=== PATIENT | female | born 1935 | race African-American/Black ===

== ENCOUNTER 2018-04-19 23:34 | Inpatient (IN) | payer MEDICARE, BC ==
[~2018-04-19] VITALS: Ht 165.1 cm; Wt 51.7 kg
--- NOTE | 2018-04-20 00:05 | NUR ---
Pt has 4 collectible coins (belongings) that are placed in safe. Nurse nutritional yeast supervisor aware.
--- NOTE | 2018-04-20 00:12 | NUR ---
Pt. admitted to M[facility] (bed [facility] , under care of Dr. Gonzalez/Inbox Diagnosis: Psychosis Belongs List completed. Report given to Marta. No acute distress noted. VSS.
--- NOTE | 2018-04-20 00:45 | NUR ---
RECEIVED PATIENT VIA GURNEY FROM ER. PATIENT IS ALERT TO SELF ONLY. CONFUSED AND DISORIENTED, BUT PLEASANT WHEN APPROACHED. SITTER AT BEDSIDE FOR SAFETY. PATIENT DENIES PAIN OR DISCOMFORT. NO FACIAL GRIMACE NOTED. DENIES ANY SOB. ON RA SATING 99%. BP SLIGHTLY ELEVATED, BUT TRENDING DOWN FROM ER. PATIENT DENIES ANY CHEST PAIN. SKIN INTACT. OLD SCAR NOTED TO RIGHT CHEST, INTACT. PROVIDED SAFE AND THERAPEUTIC ENVIRONMENT. BED ALARM ON. ALL NEEDS ATTENDED. WILL CONTINUE TO MONITOR AND ASSESS.
[2018-04-20] MEDS ORDERED: MAG HYDROX/AL HYDROX/SIMETH 30 ML LIQUID UDC PO PRN ×2 (01:15→01:16)
[2018-04-20] MEDS ORDERED: MAGNESIUM HYDROXIDE 30 ML LIQUID UDC PO PRN (01:15)
[2018-04-20] MEDS ORDERED: LORAZEPAM 0.5 MG TABLET PO PRN (01:15)
--- NOTE | 2018-04-20 06:53 | NUR ---
PATIENT AWAKE IN BED. SITTER AT BEDSIDE. PATIENT SLEPT A TOTAL OF 2 HOURS. BED ALARM ON. ALL NEEDS ATTENDED. WILL CONTINUE TO MONITOR.
--- NOTE | 2018-04-20 07:57 | NUR ---
patient resting comfortably in bed at this time. no s/s of distress. stable condition. 1:1 sitter at bedside. patient on 5150 hold, geropsych overflow. pleasant. alert at this time. will continue to monitor.
[2018-04-20 08:18] VITALS: BP 141/68
--- NOTE | 2018-04-20 09:00 | NUR ---
patient evaluated by physical therapy. patient able to ambulate without assistance.
--- NOTE | 2018-04-20 09:15 | NUR ---
UX VISUAL DESIGNER ordered to have CBC, BMP, and UA ordered for patient today. Orders placed.
[2018-04-20 10:20] LABS: BASOPHILS % (AUTO) 0.4 % (0.0-2.0); EOSINOPHILS # (AUTO) 0.1 K/uL (0.0-0.7); EOSINOPHILS % (AUTO) 0.9 % (0.0-7.0); HEMOGLOBIN 15.4 g/dL (10.9-14.3); LYMPHOCYTES # (AUTO) 1.3 K/uL (20.0-40.0); LYMPHOCYTES % (AUTO) 14.3 % (20.5-51.5); MEAN CORPUSCULAR HEMOGLOBIN 29.8 uug (24.7-32.8); MEAN CORPUSCULAR HGB CONC 34 g/dL (32.3-35.6); MEAN CORPUSCULAR VOLUME 86.8 fL (75.5-95.3); MONOCYTES # (AUTO) 0.8 K/uL (2.0-10.0); MONOCYTES % (AUTO) 8.7 % (0.0-11.0); NEUTROPHILS # (AUTO) 6.8 K/uL (1.8-8.9); NEUTROPHILS % (AUTO) 75.7 % (38.5-71.5); PLATELET COUNT (AUTO) 110 K/uL (179-408); RED BLOOD CELL COUNT(AUTO) 5.19 MIL/uL (3.63-4.92)
[2018-04-20 10:28] LABS: CARBON DIOXIDE 26 mmol/L (21-32); CHLORIDE 104 mmol/L (98-107); GLUCOSE 147 mg/dL (74-106); POTASSIUM 3.3 mmol/L (3.5-5.1); UREA NITROGEN, BLOOD 13 mg/dL (7-18)
[2018-04-20 11:32] VITALS: BP 138/62
[2018-04-20] MEDS ORDERED: ZOLP10TA2 PO (12:55)
[2018-04-20] MEDS ORDERED: SERT100T PO (12:55)
[2018-04-20] MEDS ORDERED: ALPR1TAB7 PO (12:55)
[2018-04-20] MEDS ORDERED: CAND32TA2 PO (16:38)
[2018-04-20 20:00] VITALS: BP 126/67
--- NOTE | 2018-04-20 20:00 | NUR ---
RECEIVED PATIENT AWAKE IN BED WITH SITTER AT BEDSIDE. PATIENT IS ALERT TO SELF ONLY, CONFUSED AND DISORIENTED BUT PLEASANT WHEN APPROACHED. VSS. PATIENT DENIES PAIN OR DISCOMFORT. NO RESP. DISTRESS NOTED. PROVIDED SAFE AND THERAPEUTIC ENVIRONMENT. BED ALARM ON. ALL NEEDS ATTENDED. WILL CONTINUE TO MONITOR AND ASSESS.
[2018-04-20] MEDS: MIRTAZAPINE 15 MG TABLET PO SCH (20:39)
[2018-04-21] MEDS: TEMAZEPAM 7.5 MG CAPSULE PO PRN (00:13)
[2018-04-21] MEDS: ACETAMINOPHEN 325 MG TABLET PO PRN (00:13)
--- NOTE | 2018-04-21 00:15 | NUR ---
PATIENT IS AWAKE IN BED. VERY RESTLESS. PATIENT GIVEN RESTORIL 7.5MG PO PRN AND TYLENOL 650MG PO PRN FOR MILD PAIN, PATIENT STATED, "MY BONES ARE SORE." SITTER AT BEDSIDE, WILL CONTINUE TO MONITOR AND ASSESS.
--- NOTE | 2018-04-21 02:00 | NUR ---
PATIENT STILL AWAKE. VERY RESTLESS. SITTER AT BEDSIDE. WILL CONTINUE TO MONITOR AND ASSESS.
[2018-04-21 06:09] LABS: BASOPHILS % (AUTO) 0.3 % (0.0-2.0); EOSINOPHILS # (AUTO) 0.2 K/uL (0.0-0.7); EOSINOPHILS % (AUTO) 2.2 % (0.0-7.0); HEMATOCRIT 45.5 % (31.2-41.9); HEMOGLOBIN 15.4 g/dL (10.9-14.3); LYMPHOCYTES # (AUTO) 2.1 K/uL (20.0-40.0); LYMPHOCYTES % (AUTO) 27.4 % (20.5-51.5); MEAN CORPUSCULAR HEMOGLOBIN 30.1 uug (24.7-32.8); MEAN CORPUSCULAR HGB CONC 34 g/dL (32.3-35.6); MEAN CORPUSCULAR VOLUME 88.8 fL (75.5-95.3); MONOCYTES # (AUTO) 0.8 K/uL (2.0-10.0); MONOCYTES % (AUTO) 10.6 % (0.0-11.0); NEUTROPHILS # (AUTO) 4.6 K/uL (1.8-8.9); NEUTROPHILS % (AUTO) 59.5 % (38.5-71.5); PLATELET COUNT (AUTO) 110 K/uL (179-408); RED BLOOD CELL COUNT(AUTO) 5.12 MIL/uL (3.63-4.92); WHITE BLOOD COUNT (AUTO) 7.7 K/uL (3.8-11.8)
--- NOTE | 2018-04-21 06:13 | NUR ---
PATIENT ASLEEP. PATIENT SLEPT A TOTAL OF 1 HOUR AND 45 MINUTES. SITTER AT BEDSIDE.
[2018-04-21 06:20] LABS: CARBON DIOXIDE 30 mmol/L (21-32); CHLORIDE 106 mmol/L (98-107); GLUCOSE 91 mg/dL (74-106); POTASSIUM 3.2 mmol/L (3.5-5.1); UREA NITROGEN, BLOOD 11 mg/dL (7-18)
--- NOTE | 2018-04-21 07:45 | NUR ---
patient resting comfortably in bed at this time. awake. only slept 1 hour and 45 minutes during the night per electric meter setter nurse. reorientation will be provided throughout shift. stable condition. notified MANAGER ASSISTED LIVING of potassium level of 3.2. MANAGER ASSISTED LIVING ordered 40 meq potassium to be administered. 1:1 sitter at bedside. continues to be on 5150 hold. will monitor throughout shift.
[2018-04-21] MEDS ORDERED: POTASSIUM CHLORIDE 20 MEQ TAB.PRT.SR PO ONE (09:00)
[2018-04-21 09:14] VITALS: BP 145/73
--- NOTE | 2018-04-21 09:46 | NUR ---
pt refused to take second tablet of k-dur 20 mEq. patient took first tablet but refused to take the second tablet. reorientation provided and explained importance of supplementing potassium. patient continued to refuse. will attempt to administer second tablet later on in shift.
[2018-04-21 09:54] LABS: *BILIRUBIN,URIN NEGATIVE (NEGATIVE); *BLOOD, URINE Trace-lysed (NEGATIVE); *CLARITY,URINE SLIGHTLY CLOUDY (CLEAR); *COLOR,URINE YELLOW (YELLOW); *KETONES,URINE NEGATIVE (NEGATIVE); *PROTEIN,URINE NEGATIVE (NEGATIVE); *UROBILINOGEN,URINE 0.2 E.U./dl (NORMAL); LEUKOCYTE ESTERASE ,URINE 2+ (NEGATIVE); NITRITE, URINE NEGATIVE (NEGATIVE); UGLUCOSE NEGATIVE (NEGATIVE)
[2018-04-21 10:22] LABS: BACTERIA,URINE FEW /HPF (NONE SEEN); SQUAMOUS EPITHELIAL CELL,UR MODERATE /HPF (NONE SEEN)
[2018-04-21 13:00] VITALS: BP 114/58
[2018-04-21] MEDS: OLANZAPINE 2.5 MG TABLET PO SCH ×2 (13:47→17:36)
[2018-04-21] MEDS: ALPRAZOLAM 0.25 MG TABLET PO PRN ×2 (13:47→22:05)
[2018-04-21] MEDS: SERTRALINE HCL 50 MG TABLET PO SCH (13:47)
[2018-04-21] MEDS: LOSARTAN POTASSIUM 50 MG TABLET PO SCH (13:47)
[2018-04-21] MEDS: ALPRAZOLAM 0.5 MG TABLET PO SCH ×2 (13:50→17:36)
--- NOTE | 2018-04-21 16:03 | NUR ---
Initial DC Plan: Patient currently lives home alone [[address] [address]; [phone]]. SW will follow up with MD, patient, and patient's friend Zarina [[phone]] to discuss most appropriate discharge plans. SW will form a safe and proper discharge.
[2018-04-21 18:53] VITALS: BP 152/77
--- NOTE | 2018-04-21 19:25 | NUR ---
RECEIVED PT AWAKE, ALERT,AND ORIENTEDX2. PT SHOWS NO SIGNS OF DISTRESS. SITTER AT BEDSIDE. CALL LIGHT WITHIN REACH, BED ALARM ON AND IN LOW POSITION, AND SIDE RAILS UPX2. WILL CONTINUE TO MONITOR.
[2018-04-21 19:58] VITALS: BP 119/50
[2018-04-21] MEDS: MIRTAZAPINE 15 MG TABLET PO SCH (21:34)
[2018-04-22] MEDS: TEMAZEPAM 7.5 MG CAPSULE PO PRN (01:12)
[2018-04-22] MEDS: ACETAMINOPHEN 325 MG TABLET PO PRN (01:12)
--- NOTE | 2018-04-22 06:21 | NUR ---
PT SLEPT INTERMITTENTLY. SITTER AT BEDSIDE.PT SLEPT 4 HOURS. PT SHOWS NO SIGNS OF DISTRESS. PT CONFUSED BUT PLEASANT WHEN APPROACHED.. PT WANT TO GO HOME. NEED REORIENTATION. PRESCRIBED MEDICATION GIVEN AND PT TOLERATED IT WELL CALL LIGHT WITHIN REACH. BED ALARM ON AND IN LOW POSITION. WILL ENDORSE ACCORDINGLY TO INCOMING SHIFT NURSE.
--- NOTE | 2018-04-22 07:39 | NUR ---
PATIENT RESTING COMFORTABLY IN BED. STABLE CONDITION, NO S/S OF DISTRESS. 1:1 SITTER AT BEDSIDE. REORIENTATION WILL BE PROVIDED THROUGHOUT SHIFT. ABLE TO AMBULATE TO RESTROOM. NO SIGNS OF AGITATION, AGGRESSION. DENIES SI, HI. COOPERATIVE.
[2018-04-22 07:57] VITALS: BP 145/67
[2018-04-22] MEDS: ALPRAZOLAM 0.5 MG TABLET PO SCH ×2 (08:28→17:23)
[2018-04-22] MEDS: OLANZAPINE 2.5 MG TABLET PO SCH ×2 (08:28→17:23)
[2018-04-22] MEDS: LOSARTAN POTASSIUM 50 MG TABLET PO SCH (08:29)
--- NOTE | 2018-04-22 08:41 | NUR ---
PATIENT SLEPT ABOUT 4 HOURS DURING PREVIOUS NIGHT ACCORDING TO SADDLE MAKER NURSE. PATIENT SLEEPING AT THIS TIME. VERBALIZES THAT SHE WILL HAVE BREAKFAST LATER.
[2018-04-22] MEDS ORDERED: CANDESARTAN CILEXETIL 32 MG PO SCH (09:00)
[2018-04-22] MEDS ORDERED: POTASSIUM CHLORIDE 20 MEQ TAB.PRT.SR PO ONE (09:15)
[2018-04-22 11:48] VITALS: BP 133/72
[2018-04-22] MEDS: SERTRALINE HCL 50 MG TABLET PO SCH (12:00)
[2018-04-22 15:22] VITALS: BP 112/73
--- NOTE | 2018-04-22 18:15 | NUR ---
PATIENT IN AND OUT OF SLEEP DURING THE DAY SHIFT. COMPLIANT WITH MEDICATIONS AND MEDICAL CARE. PATIENT REQUESTING TO SEE DOCTOR BUT PSYCHIATRIST HAS ALREADY SEEN PATIENT BUT PATIENT ASLEEP DURING THE MORNING. NO SIGNS OF AGITATION. REORIENTATION PROVIDED TO PATIENT THROUGHOUT SHIFT. NO SIGNS OF ASPIRATION. SAFETY MEASURES IMPLEMENTED.
[2018-04-22 20:00] VITALS: BP 125/55
[2018-04-22] MEDS: MIRTAZAPINE 15 MG TABLET PO SCH (20:21)
[2018-04-23] MEDS: TEMAZEPAM 7.5 MG CAPSULE PO PRN (00:17)
[2018-04-23 06:28] LABS: CARBON DIOXIDE 27 mmol/L (21-32); CHLORIDE 106 mmol/L (98-107); CREATININE 0.9 mg/dL (0.6-1.3); GLUCOSE 112 mg/dL (74-106); POTASSIUM 3.6 mmol/L (3.5-5.1); UREA NITROGEN, BLOOD 10 mg/dL (7-18)
[2018-04-23 06:29] LABS: BASOPHILS % (AUTO) 0.3 % (0.0-2.0); EOSINOPHILS # (AUTO) 0.2 K/uL (0.0-0.7); HEMOGLOBIN 14.9 g/dL (10.9-14.3); LYMPHOCYTES # (AUTO) 1.6 K/uL (20.0-40.0); LYMPHOCYTES % (AUTO) 16.6 % (20.5-51.5); MEAN CORPUSCULAR HEMOGLOBIN 30.3 uug (24.7-32.8); MEAN CORPUSCULAR HGB CONC 35 g/dL (32.3-35.6); MEAN CORPUSCULAR VOLUME 87.4 fL (75.5-95.3); MONOCYTES # (AUTO) 0.8 K/uL (2.0-10.0); MONOCYTES % (AUTO) 7.9 % (0.0-11.0); NEUTROPHILS # (AUTO) 7.2 K/uL (1.8-8.9); NEUTROPHILS % (AUTO) 73.2 % (38.5-71.5); PLATELET COUNT (AUTO) 135 K/uL (179-408); RED BLOOD CELL COUNT(AUTO) 4.92 MIL/uL (3.63-4.92); WHITE BLOOD COUNT (AUTO) 9.9 K/uL (3.8-11.8)
--- NOTE | 2018-04-23 06:37 | NUR ---
PT SLEPT INTERMITTENTLY. PT SHOWS NO SIGNS OF DISTRESS. SITTER AT BEDSIDE FOR SAFETY. PT RESTLESS, TURNING SIDE TO SIDE ON HER BED. PT DRANK A LOT OF JUICE.PT SLEPT 3 HOURS . PRESCRIBED MEDICATION GIVEN AND PT TOLERATED IT WELL. SAFETY AND COMFORT PROVIDED. WILL ENDORSE ACCORDINGLY TO INCOMING NURSE FOR CONTINUITY OF CARE.
--- NOTE | 2018-04-23 07:05 | NUR ---
Received report from maintenance supervisor 2nd shift nurse, patient in bed, no distress noted at this time, bed in low position, side rails up x2, bed alarm set and sitter at bedside.
[2018-04-23 07:14] VITALS: BP 118/52
[2018-04-23] MEDS: ALPRAZOLAM 0.5 MG TABLET PO SCH ×3 (08:27→16:11)
[2018-04-23] MEDS: OLANZAPINE 2.5 MG TABLET PO SCH ×3 (08:27→16:11)
[2018-04-23] MEDS: LOSARTAN POTASSIUM 50 MG TABLET PO SCH (08:27)
[2018-04-23] MEDS: SERTRALINE HCL 50 MG TABLET PO SCH (12:41)
[2018-04-23 12:55] VITALS: BP 132/64
--- NOTE | 2018-04-23 13:50 | NUR ---
Patient spontaneously started acting out and demanding that her deputy attorney general is put on the phone. It was explained to the patient that she was placed on a hold due to her behavior. She started ripping the lines out of the wall and pulling at everything in her room. Dr. Kemp called to get a one time order for medication for behavior.
[2018-04-23] MEDS ORDERED: OLANZAPINE 10 MG VIAL IM ONE (14:00)
--- NOTE | 2018-04-23 16:12 | NUR ---
Patient was offered medications, and took the cup as if she was going to take it, and threw it across the room. Medications were collected off the floor and wasted in the pyxis.
--- NOTE | 2018-04-23 17:46 | NUR ---
Patient has not been cooperative with care, after the incident in late afternoon. Patient refusing medications, and continues to have occasional outbursts. Currently patient is in bed, sitter at bedside, bed in low position, side rails up x2.
--- NOTE | 2018-04-23 19:20 | NUR ---
RECEIVED PT AWAKE, ALERT, AND ORIENTEDX2. PT SHOWS NO SIGNS OF DISTRESS. PT CALM WHEN APPROACHED. SITTER AT BEDSIDE. SAFETY PROVIDED. WILL CONTINUE TO MONITOR.
[2018-04-23 19:47] VITALS: BP 117/74
[2018-04-23] MEDS: MIRTAZAPINE 15 MG TABLET PO SCH (20:12)
[2018-04-23] MEDS: ALPRAZOLAM 0.25 MG TABLET PO PRN (20:12)
[2018-04-23] MEDS: ACETAMINOPHEN 325 MG TABLET PO PRN (20:12)
[2018-04-24] MEDS: ALPRAZOLAM 0.25 MG TABLET PO PRN (05:44)
--- NOTE | 2018-04-24 06:05 | NUR ---
PT WOKE UP AND AGITATED, DISORIENTED AND CONFUSED. PT WANTS HER OWN EYEGLASS. PT WANTS US TO GET A NEW ONE FOR HER FROM [facility]. CHARGE NURSE AWARE AND TALKED WITH THE PT. PT GIVEN XANAX PRESCRIBED. ONE TABLET WAS THROWN TO THE FLOOR BY THE PT. CHARGE NURSE AND I GET ANOTHER TABLET AT THE [facility].PT ALSO THROW AN OBJECT THAT SHE HOLD PER SITTER. WILL CONTINUE TO MONITOR.
--- NOTE | 2018-04-24 06:42 | NUR ---
PT SLEPT 8 HOURS OF THE SHIFT. PT SHOWS NO SIGNS OF DISTRESS.PRESCRIBED MEDICATION GIVEN AND PT TOLERATED IT WELL.PT PLEASANT WHEN APPROACH. COOPERATIVE WITH CARE BUT SOMETIMES RELUCTANT. PT SOMETIMES CONFUSE AND CONFABULATES.SITTER AT BEDSIDE FOR SAFETY. BED ALARM ON. SAFETY AND COMFORT PROVIDED. WILL ENDORSE ACCORDINGLY FOR CONTINUITY OF CARE.
[2018-04-24 07:28] VITALS: BP 140/63
--- NOTE | 2018-04-24 07:47 | NUR ---
PATIENT IN BED AT THIS TIME. AWAKE. REQUESTING FOR FLOSS AND REQUESTING FOR HER JELLY FILTER TENDER. NOTIFIED PATIENT WE DONT HAVE FLOSS AND PATIENT APPEARS AGITATED. ALSO REQUESTING TO LEAVE. NOTIFIED PATIENT SHE CANNOT BECAUSE SHE IS ON A HOLD AND SHOWED PATIENT DOCUMENTS SHOWING THE PSYCHIATRIC HOLD. 1:1 SITTER AT BEDSIDE FOR SAFETY. REORIENTATION WILL BE PROVIDED.
[2018-04-24] MEDS: LOSARTAN POTASSIUM 50 MG TABLET PO SCH (08:16)
[2018-04-24] MEDS: OLANZAPINE 2.5 MG TABLET PO SCH ×2 (08:17→16:34)
[2018-04-24] MEDS: ALPRAZOLAM 0.5 MG TABLET PO SCH ×2 (08:17→16:33)
--- NOTE | 2018-04-24 11:09 | NUR ---
PATIENT TRANSFERRED TO MENTAL HEALTH UNIT AT THIS TIME. REPORT GIVEN.
[2018-04-24] MEDS: SERTRALINE HCL 50 MG TABLET PO SCH (12:49)
[2018-04-24 17:11] VITALS: BP 112/65
--- NOTE | 2018-04-24 18:28 | NUR ---
GPS: Nursing Notes: Thought Disorder: Patient is awake and responding to her name, resistant with nursing care, poor anger management, loud and angry affect, c/o heartburn, but when offered Mylanta, she got angry and threw the medication on the floor, violent outburst without provocation, verbal abusive, unkempt appearance, manipulative by saying one thing to staff and another thing to another staff, scratched staff on the arms when assisting her to the bathroom, paranoid, suspicious behavior, poor impulse control, gets easily irritable when redirected, unable to formulate a viable plan for self care, continue with treatment plan.
[2018-04-24 19:30] VITALS: BP 118/54
[2018-04-24] MEDS: MIRTAZAPINE 15 MG TABLET PO SCH (20:17)
[2018-04-24] MEDS: TEMAZEPAM 7.5 MG CAPSULE PO PRN (20:17)
--- NOTE | 2018-04-25 00:18 | NUR ---
Restoril given per pt's request at 2100. Sleeping soundly at this time
--- NOTE | 2018-04-25 06:46 | NUR ---
Episodes of being cooperative, manipulative and acting out noted. Screamed when room lights were turned on, when assisted to a different position and during nursing care. Urinated by her bedroom door. Went to the next patients' bathroom and used the toilet. Got slightly combative when being helped to a angel chair. Took a shower this morning. Manifested paranoia when given meds, demanded to see pills in original wrapper. Took her meds for the shift. Slept well during the night.
[2018-04-25 07:30] VITALS: BP 114/59
[2018-04-25] MEDS: OLANZAPINE 2.5 MG TABLET PO SCH ×2 (09:15→17:16)
[2018-04-25] MEDS: ALPRAZOLAM 0.5 MG TABLET PO SCH ×2 (09:15→17:16)
[2018-04-25] MEDS: LOSARTAN POTASSIUM 50 MG TABLET PO SCH (09:15)
[2018-04-25 15:24] VITALS: BP 107/60
[2018-04-25] MEDS ORDERED: LEVOFLOXACIN 500 MG TABLET PO SCH (19:00)
[2018-04-25 19:30] VITALS: BP 106/51
--- NOTE | 2018-04-25 19:45 | NUR ---
RECEIVED PATIENT IN THE DAY ROOM SITTING IN A SANDY CHAIR. SHE IS NOTED A/O X 2. SHE IS ABLE TO MAKE HER NEEDS KNOWN AND ABLE TO AMBULATE WITH SLOW BUT STEADY GAIT. CONTINENT OF BOWEL AND BLADDER. PATIENT NOTED SUSPICIOUS, LABILE, FLIGHT OF IDEAS, TANGENTIAL. POOR INSIGHT AND JUDGMENT NOTED INTO THE REASON FOR HIS ADMISSION TO MHU. SAFETY WAS EMPHASIS. WILL CONTINUE TO MONITOR CLOSELY.
[2018-04-25] MEDS: DIVALPROEX SPRINKLE 125 MG CAP.SPRINK PO SCH (20:44)
[2018-04-25] MEDS: MIRTAZAPINE 15 MG TABLET PO SCH (20:45)
[2018-04-25] MEDS: TEMAZEPAM 7.5 MG CAPSULE PO PRN (22:09)
[2018-04-26] MEDS: ALPRAZOLAM 0.25 MG TABLET PO PRN ×2 (01:19→21:52)
--- NOTE | 2018-04-26 06:54 | NUR ---
PATIENT SLEPT FOR APPROX 2.00HRSTHROUGH THE NIGHT. SHE CONTINUE SUSPICIOUS AND SHE WANTS HER MEDICATIONS TO BE OPEN IN FRONT OF HER. WILL CONTINUE TO MONITOR,
[2018-04-26 07:30] VITALS: BP 105/53
[2018-04-26] MEDS: ALPRAZOLAM 0.5 MG TABLET PO SCH ×2 (08:58→17:02)
[2018-04-26] MEDS: DIVALPROEX SPRINKLE 125 MG CAP.SPRINK PO SCH ×4 (08:58→17:02)
[2018-04-26] MEDS: LOSARTAN POTASSIUM 50 MG TABLET PO SCH (08:58)
[2018-04-26] MEDS: OLANZAPINE 2.5 MG TABLET PO SCH ×4 (08:59→17:01)
[2018-04-26] MEDS: NITROFURANTOIN/NITROFURAN MAC 100 MG CAPSULE PO SCH ×2 (11:46→20:36)
--- NOTE | 2018-04-26 12:00 | NUR ---
At this time patient took her medications after aggressively graving it from my hands; causing some scratches with scant bleeding in some areas. Attending psychiatrist in the unit and notified of incident.
--- NOTE | 2018-04-26 12:36 | NUR ---
1300 medications dose been refused by patient, who aggressively received medication and proceeded to throw it away. Patient educated on medication need, Patient stating "you just want to poison me and you think you can hold me here" using profanity language grabbed ensure bottle and throw it against wall almost hitting the tv.
[2018-04-26 15:00] VITALS: BP 102/52
--- NOTE | 2018-04-26 15:45 | NUR ---
Senior Internal Auditor: SW submitted APS report for suspected self-neglect (Intake #[id number])
--- NOTE | 2018-04-26 19:25 | NUR ---
RECEIVED PT AWAKE, ALERT,AND ORIENTED X1 . PT CALM WHEN APPROACHED BUT WHEN INTERACTION PT BECOME ANXIOUS AND HAD FLIGHT OF IDEAS. SAFETY PROVIDED. WILL CONTINUE TO MONITOR.
[2018-04-26 20:24] VITALS: BP 104/68
[2018-04-26] MEDS: TEMAZEPAM 7.5 MG CAPSULE PO PRN (21:52)
--- NOTE | 2018-04-27 06:27 | NUR ---
PT SLEPT INTERMITTENTLY AT 5 HOURS AND 30 MINUTES . PT STABLE WITH NO ACUTE DISTRESS. SAFETY AND COMFORT PROVIDED. PRESCRIBED MEDICATION GIVEN AND PT TOLERATED IT WELL BUT PT REFUSED HER MICROBID .ALL NEEDS ARE MET. WILL ENDORSE ACCORDINGLY TO INCOMING NURSE.
[2018-04-27 07:35] VITALS: BP 135/58
[2018-04-27] MEDS: LOSARTAN POTASSIUM 50 MG TABLET PO SCH (08:39)
[2018-04-27] MEDS: ALPRAZOLAM 0.5 MG TABLET PO SCH (08:39)
[2018-04-27] MEDS: OLANZAPINE 2.5 MG TABLET PO SCH ×3 (08:40→17:24)
[2018-04-27] MEDS: NITROFURANTOIN/NITROFURAN MAC 100 MG CAPSULE PO SCH ×2 (08:52→20:51)
[2018-04-27] MEDS: DIVALPROEX SPRINKLE 125 MG CAP.SPRINK PO SCH ×3 (08:53→17:00)
[2018-04-27 15:47] VITALS: BP 117/49
[2018-04-27] MEDS ORDERED: ALPRAZOLAM 0.5 MG TABLET PO SCH (17:00)
[2018-04-27] MEDS: ALPRAZOLAM 0.25 MG TABLET PO SCH (17:24)
[2018-04-27 20:18] VITALS: BP 158/50
[2018-04-27] MEDS: ALPRAZOLAM 0.25 MG TABLET PO PRN (22:11)
[2018-04-28] MEDS: TEMAZEPAM 7.5 MG CAPSULE PO PRN ×2 (00:32→23:33)
--- NOTE | 2018-04-28 06:48 | NUR ---
GPS: Pt.refused scheduled lab works for today despite explanation of importance. Pt.is easily agitated/irritable when being re-directed and persuaded. Continues to be paranoid and unpredictable. Will continue to monitor.
[2018-04-28 07:30] VITALS: BP 178/67
[2018-04-28] MEDS: NITROFURANTOIN/NITROFURAN MAC 100 MG CAPSULE PO SCH ×2 (09:00→20:45)
[2018-04-28] MEDS: DIVALPROEX SPRINKLE 125 MG CAP.SPRINK PO SCH ×3 (09:15→16:29)
[2018-04-28] MEDS: ALPRAZOLAM 0.25 MG TABLET PO SCH ×2 (09:15→16:29)
[2018-04-28] MEDS: OLANZAPINE 2.5 MG TABLET PO SCH ×3 (09:15→16:29)
[2018-04-28] MEDS: LOSARTAN POTASSIUM 50 MG TABLET PO SCH (09:16)
[2018-04-28 17:38] VITALS: BP 160/60
[2018-04-29] MEDS: ACETAMINOPHEN 325 MG TABLET PO PRN (00:56)
[2018-04-29] MEDS: ALPRAZOLAM 0.25 MG TABLET PO PRN ×2 (02:57→21:12)
[2018-04-29 07:30] VITALS: BP 147/82
[2018-04-29] MEDS: NITROFURANTOIN/NITROFURAN MAC 100 MG CAPSULE PO SCH ×3 (08:48→21:11)
[2018-04-29] MEDS: DIVALPROEX SPRINKLE 125 MG CAP.SPRINK PO SCH ×3 (08:49→17:00)
[2018-04-29] MEDS: OLANZAPINE 2.5 MG TABLET PO SCH ×3 (08:49→17:00)
[2018-04-29] MEDS: LOSARTAN POTASSIUM 50 MG TABLET PO SCH ×2 (08:50→09:00)
--- NOTE | 2018-04-29 09:18 | NUR ---
PATIENT IS HOSTILE ON APPROACH, SLAMMING THE BATHROOM DOORS. STACKS OF GLOVES WERE FOUND IN THE PATIENT BED, UNDER THE SHEETS, UNDER THE MATTRESS, UNDER THE PILLOW. PT WAS FOUND TO WEAR GLOVES ON HER FEET UNDER THE SOCKS AND HAVE GLOVES IN THE SOCKS. PT IS BEING MUTE AT THIS TIME AND DOES NOT TALK TO ANY OF THE STAFF ON THE UNIT. PT THREW HER PILLS ON THE FLOOR.
[2018-04-29 15:53] VITALS: BP 109/50
--- NOTE | 2018-04-29 17:34 | NUR ---
Pt sitting up in chair in day room. Noted participating in recreational activities, painting. However, continues to show aggressive behavior. Irritable on approach. Continued to refuse her medications throughout shift. Pt refuses to answer when spoken to. All safety precautions in place. Will continue to monitor.
[2018-04-29 20:29] VITALS: BP 122/69
[2018-04-29] MEDS: TEMAZEPAM 7.5 MG CAPSULE PO PRN (23:10)
--- NOTE | 2018-04-29 23:51 | NUR ---
RECEIVED PATIENT IN THE DINNING ROOM AND UPON INTERACTIONS WITH HER WITH HER SHE WAS TANGENTIAL IN HER CONVERSATION. FOR EXAMPLE WHEN ASKED WHAT BROUGHT HER HERE SHE GAVE A WHOLE FAMILY HISTORY OF WHO SHE WAS TO ,HER LEVEL OF EDUCATION AND ASKED STAFF TO VERIFY ALL THESE ON THE INTERNET.SHE IS NON COMPLIANT WITH HER MEDS SHE PICKS AND CHOSES WHICH ONES SHE WILL TAKE. SHE HOWEVER DID NOT DISPLAY ANY AGGRESSIVE BEHAVIOR ON THIS SHIFT.SHE DID NOT C/O PAIN.SAFETY PRECAUTIONS IN PLACE AND FREQUENT CHECKS MADE TO HER ROOM. WILL CONTINUE TO MONITOR.
--- NOTE | 2018-04-30 06:50 | NUR ---
SHE SLEPT FOR APPROX.6HRS THROUGHOUT THE NIGHT.AT APPROX 23HR SHE REQUESTED FOR A SLEEPING AID AND THAT WAS GIVEN WITH FAIRLY GOOD EFFECT.SAFETY EMPHASIZED.MONITORING CONTINUES
[2018-04-30 07:30] VITALS: BP 123/76
--- NOTE | 2018-04-30 10:00 | NUR ---
Refuse am depakote. Patient urinated on the chair on purpose. Took to the bathroom for Bowel movement x1. Very uncooperative and manipulative on all ADL. making self heavy when transferring from toilet to wheelchair. Cursing on all staff. Wanted to touch rectal area. Gave shower after BM.
[2018-04-30] MEDS: NITROFURANTOIN/NITROFURAN MAC 100 MG CAPSULE PO SCH ×2 (10:15→21:00)
[2018-04-30] MEDS: OLANZAPINE 2.5 MG TABLET PO SCH ×2 (10:16→17:10)
[2018-04-30] MEDS: LOSARTAN POTASSIUM 50 MG TABLET PO SCH (10:18)
[2018-04-30] MEDS: DIVALPROEX SPRINKLE 125 MG CAP.SPRINK PO SCH ×4 (10:19→17:10)
--- NOTE | 2018-04-30 12:50 | NUR ---
DERIC arana refused in am.m reoffered at 1235 and took by patient
--- NOTE | 2018-04-30 14:45 | NUR ---
Patient became combative. refused vitals. Took the vital cords and would not let go. She threw all the things in the vital machine. Patient stated she wants us to break her fingers so she has proof that we hurting her. Patient also squeezed all staffs' fingers and also threw bottles on staff. She made herself heavy and lied down on the bathroom floor when she went in the bathroom for BM.
--- NOTE | 2018-04-30 19:01 | NUR ---
At around 1630-Patient was able to sneaked medication in her vagina. I watched her swallow the pill while eating lunch. She took out the chewed medication from her vagina and smeared it on the nursing station's counter. Refused night Depakote.
[2018-04-30 20:21] VITALS: BP 140/62
[2018-04-30] MEDS: TEMAZEPAM 7.5 MG CAPSULE PO PRN (22:33)
[2018-05-01 07:30] VITALS: BP 171/77
[2018-05-01] MEDS: OLANZAPINE 2.5 MG TABLET PO SCH ×2 (08:18→16:15)
[2018-05-01] MEDS: LOSARTAN POTASSIUM 50 MG TABLET PO SCH (08:18)
[2018-05-01] MEDS: NITROFURANTOIN/NITROFURAN MAC 100 MG CAPSULE PO SCH ×2 (08:38→20:24)
[2018-05-01] MEDS: DIVALPROEX SPRINKLE 125 MG CAP.SPRINK PO SCH ×2 (08:38→12:01)
--- NOTE | 2018-05-01 10:18 | NUR ---
patient resting comfortably in bed at this time, no signs of agitation. cooperative thus far into shift. refused macrobid for this morning's scheduled medications. took all other scheduled morning medications, including depakote sprinkle. will monitor behavior throughout shift. no s/s of distress at this time.
[2018-05-01 16:03] VITALS: BP 142/67
[2018-05-01 19:30] VITALS: BP 134/64
[2018-05-01] MEDS: ALPRAZOLAM 0.25 MG TABLET PO PRN (21:21)
[2018-05-01] MEDS: TEMAZEPAM 7.5 MG CAPSULE PO PRN (22:52)
[2018-05-02] MEDS: NITROFURANTOIN/NITROFURAN MAC 100 MG CAPSULE PO SCH ×2 (09:00→21:00)
[2018-05-02] MEDS: LOSARTAN POTASSIUM 50 MG TABLET PO SCH (09:00)
[2018-05-02] MEDS: OLANZAPINE 2.5 MG TABLET PO SCH ×2 (09:18→17:30)
[2018-05-02] MEDS: ALPRAZOLAM 0.25 MG TABLET PO PRN (13:39)
[2018-05-02] MEDS: OLANZAPINE ZYDIS 5 MG TAB.RAPDIS PO PRN (21:30)
[2018-05-02] MEDS: TEMAZEPAM 7.5 MG CAPSULE PO PRN (23:19)
--- NOTE | 2018-05-02 23:20 | NUR ---
GPS: Pt.requesting for a sleeping pill. Restoril 7.5mg given PO.Will monitor effectiveness of med. Quiet environment provided to facilitate sleep.
[2018-05-03] MEDS: ALPRAZOLAM 0.25 MG TABLET PO PRN (00:36)
--- NOTE | 2018-05-03 00:40 | NUR ---
GPS: Pt.still awake at this time. Restoril given earlier was ineffective. Xanax 0.25mg given for anxiety as requested by pt. Re-assured prn. Warm milk was offered but declined. Will continue to monitor.
[2018-05-03] MEDS ORDERED: TEMAZEPAM 7.5 MG CAPSULE PO PRN (08:30)
[2018-05-03] MEDS: LOSARTAN POTASSIUM 50 MG TABLET PO SCH (09:00)
[2018-05-03] MEDS: OLANZAPINE 2.5 MG TABLET PO SCH ×2 (09:00→17:00)
--- NOTE | 2018-05-03 22:00 | NUR ---
received to care, isolative in her room, but initially pleasant upon approach. remains verbally abusive, and labile, at times. refused all vital signs and PRN medications. as of 2199, she remains awake, no distress noted. will continue to monitor closely.
--- NOTE | 2018-05-03 23:00 | NUR ---
pt is very disruptive. setting off the alarm in the dining room. walking with her gown open, exposing her back side. slamming doors, attempting to wake up peers. difficult to redirect, becoming verbally abusive, when redirected. Dr Mckinnon was paged.
[2018-05-03] MEDS ORDERED: OLANZAPINE 10 MG VIAL IM ONE (23:15)
--- NOTE | 2018-05-03 23:25 | NUR ---
zyprexa 5 mg IM, per MD orders
--- NOTE | 2018-05-03 23:30 | NUR ---
pt allowed staff to check her b/p, which was 216/80, hr 101. pt denied any symptoms. she was given her morning dose of cozaar, which she had not taken for 2 days. she initially appeared to take the med, but was then observed spitting it into her hand, and trying to hide it. staff at bedside, monitoring patient. will continue to monitor closely.
--- NOTE | 2018-05-04 00:27 | NUR ---
appears calmer, now. staff remains at her bedside, for monitoring. still needs frequent redirection, which she is more receptive to. will continue to monitor closely.
[2018-05-04] MEDS: ALPRAZOLAM 0.25 MG TABLET PO PRN ×3 (02:24→22:46)
--- NOTE | 2018-05-04 02:24 | NUR ---
remains awake, but still anxious, and restless. PRN xanax was given. will continue to monitor closely.
--- NOTE | 2018-05-04 03:30 | NUR ---
appears to be asleep. no distress noted.
--- NOTE | 2018-05-04 06:00 | NUR ---
pt is now awake. slept 2.5 hours, total. b/p is 86/62, hr 70. pt is asymptomatic. his bed was placed in Trendelenburg position. will continue to monitor. Addendum: 05/04/18 at 0622 by GENO COLE LVN ERROR/ WRONG PATIENT
--- NOTE | 2018-05-04 06:00 | NUR ---
continues to sleep. slept 2.5 hours. no distress noted.
--- NOTE | 2018-05-04 06:15 | NUR ---
b/p is now 110/49, hr 78. bed placed back into normal position. continues to sleep. no distress noted. Addendum: 05/04/18 at 0622 by GENO COLE LVN ERROR/ WRONG PATIENT
[2018-05-04] MEDS: OLANZAPINE 2.5 MG TABLET PO SCH (08:45)
[2018-05-04] MEDS: LOSARTAN POTASSIUM 50 MG TABLET PO SCH ×2 (08:45→11:02)
--- NOTE | 2018-05-04 08:46 | NUR ---
Pt offered medication, was explained the risk and benefits of the medication, pt only wanted to take 2.5mg of the ordered dose of 5mg olanzapine, pt also refused to have BP checked before administration of medications. Pt refused.
[2018-05-04] MEDS: OLANZAPINE ZYDIS 5 MG TAB.RAPDIS PO SCH ×2 (12:48→17:21)
[2018-05-04 15:00] VITALS: BP 144/78
[2018-05-04 20:00] VITALS: BP 152/72
--- NOTE | 2018-05-04 22:00 | NUR ---
received to care, pleasant upon approach. compliant with medications and staff direction. behavior is appropriate. as of 2200, she remains awake, no distress noted. will continue to monitor closely.
--- NOTE | 2018-05-04 22:20 | NUR ---
appears to be asleep. no distress noted.
--- NOTE | 2018-05-04 22:46 | NUR ---
pt is now awake. PRN xanax, given for anxiety.
--- NOTE | 2018-05-04 23:20 | NUR ---
appears to be asleep. no distress noted.
--- NOTE | 2018-05-05 00:25 | NUR ---
pt is now awake. c/o inability to sleep. PRN restoril was given.
--- NOTE | 2018-05-05 01:00 | NUR ---
appears to be asleep. no distress noted.
[2018-05-05] MEDS: OLANZAPINE ZYDIS 5 MG TAB.RAPDIS PO PRN (01:59)
--- NOTE | 2018-05-05 06:00 | NUR ---
slept 6.0 hours. continues to sleep. no distress noted.
[2018-05-05 07:30] VITALS: BP 133/66
[2018-05-05 09:04] VITALS: BP 133/66
[2018-05-05] MEDS: OLANZAPINE ZYDIS 5 MG TAB.RAPDIS PO SCH (09:04)
[2018-05-05] MEDS: LOSARTAN POTASSIUM 50 MG TABLET PO SCH (09:04)
--- NOTE | 2018-05-05 09:35 | NUR ---
DC Note: Patient will be discharged to [facility] [[address] [place] [address]; ] via ambulance. KIMBERLY spoke with Ariana from [facility] who confirmed they can accept patient today. Patient is aware and agreeable to discharge plans. KIMBERLY spoke with patient's DPOA Kinza Blum [phone] who is aware and agreeable to discharge plans. Patient will follow up with Dr. Easton (Psychiatrist) and Dr. Mckeon (Corn Detasseler) at the facility. KIMBERLY left a voicemail for APS worker Benny [phone] to notify her of patient's discharge plans.
--- NOTE | 2018-05-05 10:11 | NUR ---
Firearms Report: KIMBERLY submitted Mental Health Report to [facility] on 05/05.
[2018-05-05] MEDS: ALPRAZOLAM 0.25 MG TABLET PO PRN (10:23)
--- NOTE | 2018-05-05 11:38 | NUR ---
1100 called [facility] spoke with SINGH Marcos supervisor channel process report given regarding patient mental and medical condition.
--- NOTE | 2018-05-05 14:21 | NUR ---
1325 PATIENT DISCHARGED TO [facility] VIA AMBULANC, STABLE CONDITI. pATIENT DENIES SI/HI. NO DELUSION . NO HALLUCINATION NOTED.
== END 2018-05-05 13:25 | DRG 885 ==
LOC: ER 23:42 → GPSOV 04-20 00:15 → GPS 04-24 11:24
PROVIDERS: ADMIT Psychiatry & Neurology Psychiatry; ATTEND Nurse Practitioner Acute Care
DX: F31.64 Bipolar disorder, current episode mixed, severe, with psychotic features (principal); F02.81 Dementia in other diseases classified elsewhere, unspecified severity, with behavioral disturbance; N39.0 Urinary tract infection, site not specified; J98.11 Atelectasis; G30.9 Alzheimer's disease, unspecified; Z91.14 Patient's other noncompliance with medication regimen; M19.90 Unspecified osteoarthritis, unspecified site; G47.00 Insomnia, unspecified; E87.6 Hypokalemia; B96.89 Other specified bacterial agents as the cause of diseases classified elsewhere; I10 Essential (primary) hypertension
CPT/HCPCS: 36415; 71045; 85025; 93005; J2358

== ENCOUNTER 2018-05-09 18:25 | Emergency (ER) | payer BC, MEDICARE ==
[~2018-05-09] VITALS: Ht 167.6 cm; Wt 52.6 kg
[~2018-05-09 18:25] MED LIST: CAND32TA2 PO
[2018-05-09] MEDS ORDERED: OLAN2.5T3 PO (19:05)
[2018-05-09] MEDS ORDERED: MELA3TAB PO (19:05)
[2018-05-09] MEDS ORDERED: OLAN5TAB3 PO (19:05)
[2018-05-09] MEDS ORDERED: LOSA100T15 PO (19:05)
[2018-05-09 19:17] LABS: *BILIRUBIN,URIN NEGATIVE (NEGATIVE); *BLOOD, URINE NEGATIVE (NEGATIVE); *COLOR,URINE LIGHT YELLOW (YELLOW); *KETONES,URINE NEGATIVE (NEGATIVE); *PROTEIN,URINE NEGATIVE (NEGATIVE); *UROBILINOGEN,URINE 0.2 E.U./dl (NORMAL); LEUKOCYTE ESTERASE ,URINE 1+ (NEGATIVE); NITRITE, URINE NEGATIVE (NEGATIVE); UGLUCOSE NEGATIVE (NEGATIVE)
--- NOTE | 2018-05-09 19:18 | NUR ---
hands off report given to yojana kilgore
[2018-05-09 19:28] LABS: *CLARITY,URINE SLIGHTLY HAZY (CLEAR)
[2018-05-09 19:30] LABS: RBC,URINE 0-3 /HPF (0-3); SQUAMOUS EPITHELIAL CELL,UR FEW /HPF (NONE SEEN)
[2018-05-09 20:07] LABS: BASOPHILS % (AUTO) 0.7 % (0.0-2.0); EOSINOPHILS # (AUTO) 0.1 K/uL (0.0-0.7); EOSINOPHILS % (AUTO) 2.2 % (0.0-7.0); HEMATOCRIT 33.6 % (31.2-41.9); HEMOGLOBIN 11.7 g/dL (10.9-14.3); LYMPHOCYTES # (AUTO) 0.9 K/uL (20.0-40.0); LYMPHOCYTES % (AUTO) 19.7 % (20.5-51.5); MEAN CORPUSCULAR HEMOGLOBIN 30.1 uug (24.7-32.8); MEAN CORPUSCULAR HGB CONC 35 g/dL (32.3-35.6); MEAN CORPUSCULAR VOLUME 86.6 fL (75.5-95.3); MONOCYTES # (AUTO) 0.4 K/uL (2.0-10.0); MONOCYTES % (AUTO) 9.3 % (0.0-11.0); NEUTROPHILS # (AUTO) 3.1 K/uL (1.8-8.9); NEUTROPHILS % (AUTO) 68.1 % (38.5-71.5); PLATELET COUNT (AUTO) 113 K/uL (179-408); RED BLOOD CELL COUNT(AUTO) 3.88 MIL/uL (3.63-4.92); WHITE BLOOD COUNT (AUTO) 4.6 K/uL (3.8-11.8)
[2018-05-09 20:15] LABS: CARBON DIOXIDE 27 mmol/L (21-32); CHLORIDE 107 mmol/L (98-107); GLUCOSE 101 mg/dL (74-106); POTASSIUM 3.8 mmol/L (3.5-5.1); UREA NITROGEN, BLOOD 11 mg/dL (7-18)
[2018-05-09 20:22] LABS: ALANINE AMINOTRANSFERASE 16 U/L (14-59); ALKALINE PHOSPHATASE 38 U/L (50-136); ASPARTATE AMINOTRANSFERASE 14 U/L (15-37); BILIRUBIN,DIRECT 0.2 mg/dL (0.0-0.2); BILIRUBIN,TOTAL 0.8 mg/dL (0.2-1.0); TOTAL PROTEIN, SERUM 6.3 g/dL (6.4-8.2)
[2018-05-09 20:29] LABS: ETHANOL < 3 MG/DL (0-0)
[2018-05-09] MEDS: CEPHALEXIN MONOHYDRATE 500 MG CAPSULE PO ONE ×2 (20:30→20:46)
[2018-05-09 20:31] LABS: *AMPHETAMINE, URINE NEGATIVE (NEGATIVE); *BARBITURATE, URINE NEGATIVE (NEGATIVE); *CANNABINOID, URINE POSITIVE (NEGATIVE); *COCCAINE, URINE NEGATIVE (NEGATIVE); *OPIATE, URINE NEGATIVE (NEGATIVE); *PHENCYCLIDINE SCREEN,URINE NEGATIVE (NEGATIVE)
[2018-05-09 20:32] LABS: THYROID STIMULATING HORMONE 2.326 mIU/mL (0.358-3.740)
[2018-05-09] MEDS ORDERED: CEPHALEXIN MONOHYDRATE 500 MG CAPSULE ONE ×2 (20:36→21:37)
--- NOTE | 2018-05-09 20:46 | NUR ---
Called Bobby Garcia for PET eval. ETA 45 min.
--- NOTE | 2018-05-09 22:00 | NUR ---
Bobby Garcia at bedside for eval.
--- NOTE | 2018-05-09 22:15 | NUR ---
Per DIE FILER and ER MD, pt is medically cleared and psychiatric cleared.
--- NOTE | 2018-05-09 22:19 | NUR ---
Called [facility]ong to transport pt back to [facility]. 30 min ETA. Trip #[id number].
--- NOTE | 2018-05-09 22:47 | NUR ---
Spoke to Rochelle from [facility] about pt status. [facility] here to pickle solution maker pt and transfer pt back to facility.
--- NOTE | 2018-05-09 22:52 | NUR ---
Mehdi macario in ED - 05/10/18 at 0019 by SARITA Patient discharged to home in stable conditon. Written and verbal after care instructions given. Patient verbalizes understanding of instructions. Pt to be transferred back to facility via ambul[facility].
[2018-05-09 22:55] VITALS: BP 146/77
[2018-05-09] MEDS ORDERED: MORPHINE SULFATE 2 MG/1 ML DISP.SYRIN IV ONE (23:30)
[2018-05-09] MEDS ORDERED: ONDANSETRON 4 MG/2 ML VIAL IV ONE (23:30)
--- NOTE | 2018-05-09 23:30 | NUR ---
Pt refuses to get on gurney with transport. Pt states "You have to drag me out of this room if you want me out of here." Pt being difficult and stubborn. notified.
[2018-05-09] MEDS ORDERED: LORAZEPAM 2 MG/1 ML VIAL ONE (23:32)
--- NOTE | 2018-05-09 23:35 | NUR ---
Harish Martinez called. Pt was acting aggressive and hitting staff members with her bag after being told she was discharged from ER and going to be transferred back to facility. Pt was throwing items from the room on the floor.
[2018-05-10] MEDS ORDERED: LORAZEPAM 2 MG/1 ML VIAL IM ONE
--- NOTE | 2018-05-10 00:04 | NUR ---
Called [facility] and spoke with Yareli WINTERS [employer] Machine Feeder regarding pt status.
--- NOTE | 2018-05-10 00:33 | NUR ---
Ambul[facility] unit 108 transferred pt back to [facility].
== END 2018-05-10 00:35 | disposition home or self-care (01) ==
LOC: ER 18:27
DX: Z04.6 Encounter for general psychiatric examination, requested by authority (principal); N39.0 Urinary tract infection, site not specified; I10 Essential (primary) hypertension; F12.10 Cannabis abuse, uncomplicated
CPT/HCPCS: 36415; 70030-TC; 71045; 80307; 84443; 85025; 85730; 87086; 93005; A4663; G0480; J2060